=== PATIENT | female | born 1985 | race Caucasian/White ===

== ENCOUNTER 2020-01-23 08:43 | Emergency (ER) | payer OTHER ==
[~2020-01-23] VITALS: Ht 165.1 cm; Wt 86.2 kg
[~2020-01-23 08:43] MED LIST: CIPRO500 MG PO; INTESTINEX680 M1 PO; LEVSIN/SL0.125 MG PO; PEPCID AC20 MG PO; ZYRTEC10 MG PO
[2020-01-23] MEDS ORDERED: KETO10TA2 PO (13:51)
[2020-01-23] MEDS ORDERED: MEDROLPACK PO (13:51)
[2020-01-23] MEDS ORDERED: ZANAFLEX4 M1 PO (13:51)
== END 2020-01-23 14:00 | disposition home or self-care (01) ==
LOC: ER 08:43
DX: M79.661 Pain in right lower leg (principal); M54.5 Low back pain

== ENCOUNTER 2020-11-01 14:03 | Emergency (ER) | payer OTHER ==
[~2020-11-01] VITALS: Ht 165.1 cm; Wt 86.2 kg
[~2020-11-01 14:03] MED LIST changes: +KETO10TA2 PO; +MEDROLPACK PO; +ZANAFLEX4 M1 PO
[2020-11-01] MEDS ORDERED: ZYRTEC10 MG PO (17:20)
[2020-11-01] MEDS ORDERED: TUSNEL LIQUID178 ML PO (17:20)
== END 2020-11-01 17:28 | disposition home or self-care (01) ==
LOC: ER 14:03
DX: B34.9 Viral infection, unspecified (principal); M54.5 Low back pain; Z11.52 Encounter for screening for COVID-19

== ENCOUNTER 2020-11-04 18:15 | Emergency (ER) | payer OTHER ==
[~2020-11-04] VITALS: Ht 165.1 cm; Wt 86.2 kg
[~2020-11-04 18:15] MED LIST changes: +TUSNEL LIQUID178 ML PO
[2020-11-04] MEDS ORDERED: ROBITUSSIN (18:32)
== END 2020-11-04 21:56 | disposition home or self-care (01) ==
LOC: ER 18:15
DX: J35.01 Chronic tonsillitis (principal)

== ENCOUNTER 2025-05-10 08:17 | Emergency (ER) | payer OTHER ==
[~2025-05-10] VITALS: Ht 165.1 cm; Wt 81.6 kg
[~2025-05-10 08:17] MED LIST changes: +DICLOFENAC POTA50 MG PO; +ROBITUSSIN
[2025-05-10 08:36] VITALS: BP 109/66; O2SAT 98
[2025-05-10] MEDS ORDERED: KETOROLAC TROMETHAMINE 30 MG VIAL IM STA (08:55)
[2025-05-10] MEDS ORDERED: KETOROLAC TROMETHAMINE 30 MG VIAL ONE (08:56)
== END 2025-05-10 10:49 | disposition home or self-care (01) ==
LOC: ER 08:17
DX: G89.11 Acute pain due to trauma (principal); M25.571 Pain in right ankle and joints of right foot